=== PATIENT | male | born 1975 | race Caucasian/White ===

== ENCOUNTER 2021-01-21 16:31 | Emergency (ER) | payer BC, OTHER ==
[~2021-01-21 16:31] MED LIST: SULFAMETHOXAZO1 EACH PO
[2021-01-21 18:01] LABS: HEMOGLOBIN 15.1 gm/dl (14.0-17.5); WHITE BLOOD COUNT 12.4 K/UL (4.5-11.0)
[2021-01-21 18:35] LABS: BUN/CREATININE RATIO 17 (0-10)
[2021-01-21] MEDS ORDERED: CLEOCIN HCL300 MG PO (20:19)
[2021-01-22] MEDS ORDERED: IBUPROFEN800 MG PO (12:35)
== END 2021-01-21 20:26 | disposition home or self-care (01) ==
LOC: ER1 16:31
PROVIDERS: Physician Assistant
DX: L03.211 Cellulitis of face (principal); Z79.899 Other long term (current) drug therapy
CPT/HCPCS: 70487; 80048; 83605; 85025; 87040; 96374; 99284; J0692; Q9967

== ENCOUNTER 2021-01-22 05:48 | Observation (INO) | payer BC, OTHER ==
[~2021-01-22] VITALS: Ht 185.4 cm; Wt 88.9 kg
[~2021-01-22 05:48] MED LIST changes: +CLEOCIN HCL300 MG PO
[2021-01-22 07:30] LABS: HEMOGLOBIN 15.5 gm/dl (14.0-17.5); RED BLOOD COUNT 5.12 M/UL (4.20-5.50)
[2021-01-22 07:34] LABS: WHITE BLOOD COUNT 16.2 K/UL (4.5-11.0)
[2021-01-22 08:12] LABS: BUN/CREATININE RATIO 14 (0-10)
[2021-01-22] MEDS ORDERED: IBUPROFEN800 MG PO (12:35)
[2021-01-23 04:49] LABS: HEMOGLOBIN 13.6 gm/dl (14.0-17.5); RED BLOOD COUNT 4.84 M/UL (4.20-5.50)
[2021-01-23 05:00] LABS: WHITE BLOOD COUNT 11.8 K/UL (4.5-11.0)
[2021-01-23 05:07] LABS: BUN/CREATININE RATIO 11 (0-10)
== END 2021-01-23 12:19 | disposition home or self-care (01) ==
LOC: ER1 05:48 → M/S 08:56 → CDU 08:56 → M/S 08:56
PROVIDERS: Family Medicine; Physician Assistant; ADMIT Internal Medicine
DX: L03.211 Cellulitis of face (principal); T81.49XA Infection following a procedure, other surgical site, initial encounter; T81.31XA Disruption of external operation (surgical) wound, not elsewhere classified, initial encounter; D72.829 Elevated white blood cell count, unspecified; Z88.0 Allergy status to penicillin; Z88.1 Allergy status to other antibiotic agents; Z20.822 Contact with and (suspected) exposure to COVID-19
CPT/HCPCS: 36415; 80048; 85025; 87081; 96374; 96375; 99284; G0378; J0692; J3370; J7030; J7070; U0002